=== PATIENT | female | born 1995 | race Caucasian/White ===

== ENCOUNTER 2016-10-22 23:04 | Emergency (ER) | payer OTHER ==
[~2016-10-22 23:04] MED LIST: NO MEDICATIONS; PHENERGAN25 M1 PO; PRENATAL1 TA1 PO; REGLAN10 MG PO; TYLENOL325 M1 PO; ZITHROMAX500 MG PO
[2016-10-23] MEDS ORDERED: OMNICEF300 MG PO (01:19)
[2016-10-23] MEDS ORDERED: FIORICET 50-301 EACH PO (01:20)
== END 2016-10-23 01:25 | disposition home or self-care (01) ==
LOC: SED 23:04
DX: J01.90 Acute sinusitis, unspecified (principal); F17.210 Nicotine dependence, cigarettes, uncomplicated
CPT/HCPCS: 96361; 96374; 96375; 99284; J1200; J1885; J2765